=== PATIENT | male | born 1970 | race Caucasian/White ===

== ENCOUNTER 2018-08-20 23:41 | Emergency (ER) | payer OTHER ==
[~2018-08-20] VITALS: Ht 165.1 cm; Wt 70.3 kg
--- NOTE | 2018-08-21 00:10 | NUR ---
PT PLACED ON FOR COMFORT
--- NOTE | 2018-08-21 00:31 | Diagnostic Imaging Report ---
EXAMINATION: CHEST SINGLE (PORTABLE) INDICATION: SOB COMPARISON: None FINDINGS: AP view TUBES and LINES: None. LUNGS: There is no evidence of pneumonia or pulmonary edema. PLEURA: No pleural effusion or pneumothorax. HEART AND MEDIASTINUM: The cardiomediastinal silhouette is unremarkable. BONES AND SOFT TISSUES: No acute osseous lesion. Soft tissues are unremarkable. UPPER ABDOMEN: No free air under the diaphragm. IMPRESSION: No acute thoracic abnormality. Signed by: DR. Franck Ba MD on 08/21/2018 12:28 AM
== END 2018-08-21 01:30 | disposition home or self-care (01) ==
LOC: ER 23:41
DX: R11.0 Nausea (principal); Z77.021 Contact with and (suspected) exposure to benzene
CPT/HCPCS: 71045; 93005; 99283

== ENCOUNTER 2022-10-16 03:01 | Inpatient (IN) | payer OTHER ==
[~2022-10-16] VITALS: Ht 165.1 cm; Wt 72.6 kg
[2022-10-16] MEDS ORDERED: ONDANSETRON HCL INJ 2MG/ML 2ML 2 MG/ML VIAL IV STA (03:13)
[2022-10-16] MEDS ORDERED: Morphine 4mg INJECTION 4 MG/ML INJ IV STA (03:13)
[2022-10-16 03:23] LABS: BASOPHILS # (AUTO) 0.1 (0.0-0.1); BASOPHILS % 0.7 % (0.0-1.0); EOSINOPHILS # (AUTO) 0.1 (0.0-0.4); EOSINOPHILS % 1.3 % (0.0-6.0); HEMATOCRIT 41.1 % (38.2-49.6); HEMOGLOBIN 13.9 g/dL (14.0-18.0); LYMPHOCYTES # (AUTO) 1.2 (1.0-3.2); LYMPHOCYTES % 13.7 % (18.0-39.1); MEAN CORPUSCULAR HEMOGLOBIN 30.3 pg (28-32); MEAN CORPUSCULAR HGB CONC 33.8 g/dL (31-35); MEAN CORPUSCULAR VOLUME 89.7 fL (81-99); MONOCYTES # (AUTO) 1.1 (0.2-0.8); MONOCYTES % 12.2 % (4.4-11.3); NEUTROPHILS # (AUTO) 6.2 (2.1-6.9); NEUTROPHILS % 71.9 % (38.7-80.0); PLATELET COUNT 182 x10e3/uL (140-360); RED BLOOD COUNT 4.58 x10e6/uL (4.3-5.7); RED CELL DISTRIBUTION WIDTH 13.4 % (11.7-14.4)
[2022-10-16 03:46] LABS: ALBUMIN 3.8 g/dL (3.5-5.0); ALBUMIN/GLOBULIN RATIO 1.1 (0.8-2.0); ANION GAP 14.9 mmol/L (8-16); CREATININE, SERUM 1.05 mg/dL (0.72-1.25); POTASSIUM 3.9 mmol/L (3.5-5.1)
[2022-10-16] MEDS ORDERED: IOPAMIDOL 370 MG/ML 100 ML INFUS..BTL INJ ONE (03:51)
[2022-10-16] MEDS ORDERED: KETOROLAC TROMETHAMINE 30 MG/ML VIAL IV STA (05:38)
[2022-10-16] MEDS ORDERED: ONDANSETRON HCL INJ 2MG/ML 2ML 2 MG/ML VIAL IV PRN (06:00)
[2022-10-16 06:11] LABS: CLARITY,URINE CLEAR (CLEAR); COLOR,URINE YELLOW (YELLOW); KETONES,URINE NEGATIVE (NEGATIVE); LEUKOCYTE ESTERASE ,URINE NEGATIVE (NEGATIVE); NITRITE,URINE NEGATIVE (NEGATIVE); PROTEIN,URINE DIPSTICK NEGATIVE (NEGATIVE); URINE UROBILINOGEN 0.2 mg/dL (0.2 - 1)
[2022-10-16 06:18] LABS: BACTERIA,URINE RARE /HPF; EPITHELIAL CELLS,URINE RARE /LPF; RBC,URINE 0-5 /HPF (0-5); WBC,URINE (MAN) 0-5 /HPF (0-5)
[2022-10-16] MEDS: SODIUM CHLORIDE 0.9% 1000ML 1,000 ML IV SCH ×2 (12:20→23:24)
[2022-10-16] MEDS: HYDROMORPHONE 1MG/1ML INJ IV PRN ×3 (12:21→22:02)
[2022-10-16 12:23] VITALS: BP 156/99; PULSE 76; RESP 20; TEMP 97.9; O2SAT 100
[2022-10-16 12:37] VITALS: BP 156/99; PULSE 76; RESP 20; TEMP 97.9; O2SAT 100
[2022-10-16 12:39] VITALS: BP 156/99; PULSE 76; RESP 20; TEMP 97.9; O2SAT 100
[2022-10-16] MEDS ORDERED: ROCURONIUM BROMIDE 10 MG/ML 5ML VIAL IV ONE (13:46)
[2022-10-16] MEDS ORDERED: KETOROLAC TROMETHAMINE 30 MG/ML VIAL ONE (13:46)
[2022-10-16] MEDS ORDERED: POVIDONE IODINE 0.05% 0.05 % ML PO ONE (13:46)
[2022-10-16] MEDS ORDERED: PROPOFOL IV EMULSION 10 MG/ML 20 ML VIAL ONE (13:46)
[2022-10-16] MEDS ORDERED: LIDOCAINE HCL 2% LOCAL INJ 5 ML SDV VIAL INJ ONE (13:46)
[2022-10-16] MEDS ORDERED: ALBUTEROL SULFATE HFA 8GM INHALATION AEROSOL INH ONE (13:46)
[2022-10-16] MEDS ORDERED: DEXAMETHASONE SOD PHOS INJ 4 MG/ML SDV ONE (13:46)
[2022-10-16] MEDS ORDERED: ONDANSETRON HCL INJ 2MG/ML 2ML 2 MG/ML VIAL ONE (13:46)
[2022-10-16 15:46] VITALS: BP 143/91; PULSE 85; RESP 18; TEMP 98.8; O2SAT 100
[2022-10-16 19:25] VITALS: BP 128/87; PULSE 89; RESP 18; TEMP 98.9; O2SAT 100
[2022-10-17] VITALS (8 sets, daily range): BP systolic 123–143; BP diastolic 78–83; PULSE 78–96; RESP 16–20; TEMP 98.2–99.7; O2SAT 98–100
[2022-10-17] MEDS: HYDROMORPHONE 1MG/1ML INJ IV PRN ×4 (01:13→23:54)
[2022-10-17 06:05] LABS: BASOPHILS # (AUTO) 0.1 (0.0-0.1); BASOPHILS % 0.6 % (0.0-1.0); EOSINOPHILS # (AUTO) 0.1 (0.0-0.4); EOSINOPHILS % 0.9 % (0.0-6.0); HEMATOCRIT 39.9 % (38.2-49.6); HEMOGLOBIN 13.2 g/dL (14.0-18.0); LYMPHOCYTES # (AUTO) 1.4 (1.0-3.2); LYMPHOCYTES % 12.6 % (18.0-39.1); MEAN CORPUSCULAR HEMOGLOBIN 30.3 pg (28-32); MEAN CORPUSCULAR HGB CONC 33.1 g/dL (31-35); MEAN CORPUSCULAR VOLUME 91.7 fL (81-99); MONOCYTES # (AUTO) 1.3 (0.2-0.8); MONOCYTES % 12.4 % (4.4-11.3); NEUTROPHILS # (AUTO) 7.9 (2.1-6.9); NEUTROPHILS % 73.2 % (38.7-80.0); PLATELET COUNT 190 x10e3/uL (140-360); RED BLOOD COUNT 4.35 x10e6/uL (4.3-5.7); RED CELL DISTRIBUTION WIDTH 13.2 % (11.7-14.4)
[2022-10-17 06:38] LABS: ALBUMIN 3.4 g/dL (3.5-5.0); CALCIUM 8.3 mg/dL (8.4-10.2); CREATININE, SERUM 0.97 mg/dL (0.72-1.25)
[2022-10-17] MEDS: ACETAMINOPHEN 325 MG TAB PO PRN (08:25)
[2022-10-17] MEDS: SODIUM CHLORIDE 0.9% 1000ML 1,000 ML IV SCH ×4 (11:54→22:00)
[2022-10-17] MEDS: HYDROCODONE/APAP 7.5MG-325MG 1 EA TAB PO PRN ×2 (12:23→17:18)
[2022-10-18] VITALS (8 sets, daily range): BP systolic 121–137; BP diastolic 75–87; PULSE 83–102; RESP 16–20; TEMP 97.6–103.1; O2SAT 98–100
[2022-10-18] MEDS: ACETAMINOPHEN 325 MG TAB PO PRN ×2 (02:05→16:10)
[2022-10-18] MEDS: SODIUM CHLORIDE 0.9% 1000ML 1,000 ML IV SCH (04:54)
[2022-10-18] MEDS: HYDROMORPHONE 1MG/1ML INJ IV PRN ×3 (05:01→23:28)
[2022-10-18] MEDS ORDERED: BUPIVACAINE 0.5%/EPI 30 ML SDV INJ ONE (08:35)
[2022-10-18] MEDS ORDERED: BUPIVACAINE HCL 0.5% INJ 30 ML VIAL INJ ONE (09:01)
[2022-10-18] MEDS ORDERED: FENTANYL CITRATE/PF 100MCG/2 ML INJ ONE ×2 (09:41→14:42)
[2022-10-18] MEDS ORDERED: Morphine 10mg syringe 10 MG/ML INJ ONE (14:42)
[2022-10-19 01:09] VITALS: BP 145/94; PULSE 81; RESP 18; TEMP 97.4; O2SAT 100
[2022-10-19 04:39] VITALS: BP 137/85; PULSE 95; RESP 18; TEMP 98.5; O2SAT 100
[2022-10-19 07:45] VITALS: BP 124/84; PULSE 81; RESP 18; TEMP 99.5; O2SAT 100
[2022-10-19 08:03] VITALS: BP 126/84; PULSE 81; RESP 18; TEMP 99.5; O2SAT 100
[2022-10-19] MEDS ORDERED: MAGNESIUM HYDROXIDE 30 ML UDC PO PRN (09:45)
[2022-10-19 12:14] VITALS: BP 138/81; PULSE 91; RESP 22; TEMP 99.2; O2SAT 100
[2022-10-19] MEDS: HYDROCODONE/APAP 7.5MG-325MG 1 EA TAB PO PRN (12:25)
[2022-10-19] MEDS ORDERED: SULFAMETHOXAZO1 EACH PO (13:05)
[2022-10-19] MEDS ORDERED: KETOROLAC TROME10 MG PO (13:05)
[2022-10-19] MEDS ORDERED: HYDROCODON-ACE1 EA12 PO (13:05)
[2022-10-19] MEDS ORDERED: DOXYCYCLINE HY100 MG PO (13:05)
[2022-10-19] MEDS ORDERED: ONDANSETRON HCL 4 MG ORAL DISINTEGRATING TAB PO PRN (13:30)
== END 2022-10-19 13:38 | disposition home or self-care (01) | DRG 989 ==
LOC: ER 03:10 → INTOOBSV 05:56 → ERHOLD 05:56 → MED/SURG3 10:30 → OBSVTOIN 10-18 09:30
PROVIDERS: ADMIT Internal Medicine; ATTEND Internal Medicine
PROC: 0W9G0ZZ Drainage of Peritoneal Cavity, Open Approach (ICD-10-PCS; principal; 2022-10-18 08:45)
DX: N49.2 Inflammatory disorders of scrotum (principal); K21.9 Gastro-esophageal reflux disease without esophagitis; D64.9 Anemia, unspecified
CPT/HCPCS: 0223U; 36415; 74177; 76870; 80053; 81001; 83690; 85025; 87071; 87075; 87186; 87205; 93976; 99284; G0378; J1100; J1170; J1885; J2001; J2270; J2405; J2543; J7030; Q9967